=== PATIENT | female | born 1960 ===

== ENCOUNTER 2017-07-28 15:30 | Inpatient (IN) | payer OTHER ==
[~2017-07-28] VITALS: Ht 152.4 cm; Wt 113.4 kg
[~2017-07-28 15:30] MED LIST: ATORVASTATIN CA20 MG PO; CYMBALTA20 MG; DOXYCYCLINE HY100 MG PO; ESOMEPRA PO; JARDIANCE10 MG PO; KOMBIGLYZE XR1 EAC1 PO; LOSARTAN POTASS50 MG PO; NAPROXEN500 MG PO; TOPROL XL50 M1 PO
[2017-07-30] MEDS ORDERED: SINGULAIR10 MG PO (10:16)
[2017-07-30] MEDS ORDERED: QVAR8.7 G1 IH (10:16)
[2017-07-30] MEDS ORDERED: CELECOXIB200 MG PO (10:17)
[2017-08-01] MEDS ORDERED: ESOMEPRAZOLE MA40 MG PO ×2 (07:08→07:09)
[2017-08-01] MEDS ORDERED: CODE1TAB37 PO (07:57)
[2017-08-01] MEDS ORDERED: NAPROXEN500 MG PO (07:57)
== END 2017-08-01 09:30 | DRG 743 ==
LOC: ADM 15:30 → EDSTATUS 15:30 → O/R 07-31 06:00 → SURH 07-31 07:00 → OB/GYN 07-31 11:09 → SURH 07-31 15:30 → OB/GYN 08-01 09:30
PROVIDERS: Obstetrics & Gynecology
PROC: 0UT77ZZ Resection of Bilateral Fallopian Tubes, Via Natural or Artificial Opening (ICD-10-PCS; 2017-07-31)
PROC: 0UT27ZZ Resection of Bilateral Ovaries, Via Natural or Artificial Opening (ICD-10-PCS; 2017-07-31)
PROC: 0UQF7ZZ Repair Cul-de-sac, Via Natural or Artificial Opening (ICD-10-PCS; 2017-07-31)
PROC: 0USG7ZZ Reposition Vagina, Via Natural or Artificial Opening (ICD-10-PCS; 2017-07-31)
PROC: 0JQC3ZZ Repair Pelvic Region Subcutaneous Tissue and Fascia, Percutaneous Approach (ICD-10-PCS; 2017-07-31)
PROC: 0UT97ZZ Resection of Uterus, Via Natural or Artificial Opening (ICD-10-PCS; principal; 2017-07-31 07:00)
DX: N95.0 Postmenopausal bleeding (principal); N85.01 Benign endometrial hyperplasia